=== PATIENT | female | born 1980 | race Caucasian/White ===

== ENCOUNTER → 2016-08-06 | Outpatient (CLI) | payer OTHER ==
--- NOTE | 2016-08-06 17:46 | US ---
Dear Dr. Potts, Thank you for sending your patient, Miguel Daniels, to us for an US and consultation to assess f etal anatomy. As you know, the patient is a 35 y.o. G2, P0010 at 20 weeks and 2 days with an EDC of based on LMP at 8 week ultrasound. Her is complicated by AMA and family history of c ongenital cardiac disease. Stephanie's past medical and surgical history are unremarkable. Her OB history is significant for a 1st trimester TAB (D&C) in 2007. Her family history is remarkable for her brother dying of complications secondary to left hypoplastic heart in digital marketing assistant. The patient also reports that her maternal gr andmother's sister shortly after for unknown reasons. She denies any personal or family hi story of bicuspid aortic valves. However, the patient herself has never had an echocardiogram. Genetic Screening: NIPT reassuring (46 XY), AFP neg The patient denies any uterine contractions, vaginal bleeding, or loss of fluid. Today, she is withou t complaints. US FINDINGS: Number of fetuses: 1 Placental location: Anterior, No previa Placental Cord Insertion: Central presentation: Breech Cervix: 3.6 cm, transabdominally MVP: 4.4 cm The adnexa were evaluated. No pathology was seen. Right ovary: Normal Left ovary: Normal heart rate: 153 bpm Measurements: Biparietal diameter: 51 mm, 21 weeks 3 days Head circumference: 184 mm, 20 weeks 6 days Abdominal circumference: 149 mm, 20 weeks 1 days Femur length: 34 mm, 20 weeks 4 days Humerus length: 31 mm, 20 weeks 3 days Transcerebellar diameter: 22 mm, 20 weeks 3 days Average ultrasound age: 20 weeks 6 days Estimated weight: 350 g weight percentile: 51% ANATOMY Supratentorial brain: Normal Cerebral lateral ventricle: 4.9 mm Posterior fossa: Normal Cisterna magna: 3.6 mm Nuchal fold: 4.4 Lip: Normal Profile: Normal Alveolar Ridge: Appears intact Spine: Grossly suboptimal due to position Heart: -- 4 Chamber: Normal -- Intraventricular septum: Appears intact by Color and Spectral US -- Right Outflow Tract: Normal -- Left Outflow Tract: Normal -- 3 Vessel View: Normal Diaphragm: Appears intact Stomach: Normal Abdominal Umbilical Cord Insertion: Normal Right kidney: Normal Left kidney: Normal Bladder: Normal Number of cord vessels: 3 Upper extremities: -- Right Arm: Normal -- Right Hand: Suboptimal -- Left Arm: Normal -- Left Hand: Suboptimal Lower extremities: -- Right Leg: Normal -- Right Foot: Suboptimal -- Left Leg: Normal -- Left Foot: Suboptimal Gender: Male IMPRESSION: 1. Anatomy: The fetus measures appropriate for gestational age, measuring a normal weight and percen tile. Visualization of the fetus today reveals no overt structural anomalies. However, the spin e, hands, and feet were not well seen secondary to position. There is evidence of normal amniot ic fluid, and movement was seen during the examination. - US in 4-6 weeks to reevaluate anatomy 2. Genetic Screening: This patient has had reassuring NIPT results this . Today, no markers of aneuploidy were seen. While her screening and US results are reassuring, we reviewed that fe [place] aneuploidy can only be definitively excluded with diagnostic testing via amniocentesis. After thi s discussion, the patient does not wish to proceed with invasive testing at this time. 3. Family History of Congenital Cardiac Disease: Given the diagnosis of hypoplastic left heart in the patient's brother, we reviewed that each will have a 2-3% risk of congenital cardiac disea se. Today, we saw no overt cardiac structural anomalies. We reviewed that left sided heart lesions ca n develop later in , but that today's US findings are reassuring. - echocardiogram with Pediatric Cardiology at 22-24 weeks - US at 30-32 weeks to assess for late developing cardiac lesions Thank you again for sending this patient to see us today. Approximately 30 minutes of a total visit t karina of 18 minutes were spent with this patient today in direct face to face counseling regarding toda y's US findings and the above recommendations. Please feel free to contact me with any questions at . Jessica Schrader MD Maternal- Medicine
--- NOTE | 2016-08-07 18:34 | US ---
Ultrasound Obstetric second trimester, greater than 14 weeks Indication: anatomy evaluation. Family history of congenital heart disease. The estimated gest ational age by LMP is 20 weeks and 2 days yielding an EDC of December 22, 2016. Comparison: None. Findings: Number: 1 Presentation: Breech Placental Location: Anterior without previa Cervix: 3.6 cm MVP: 4.4 cm Heart Rate: 153 bpm. Right ovary measures 3 x 1.2 x 2.5 cm. Left ovary measures 1.8 x 1.8 cm. Biometry: Biparietal Diameter: 50.82 mm 21 weeks, 3 days Head Circumference: 184.07 mm 20 weeks, 6 days Abdominal Circumference: 148.68 mm 20 weeks, 1 days Femur Length: 33.47 mm 20 weeks, 4 days Humerus Length: 31.22 mm 20 weeks, 3 days Transcerebellar Diameter: 21.62 mm 20 weeks, 3 days HC/AC: 1.24 (1.09-1.26) FL/BPD: 66% FL/AC: 23% Average Ultrasound Age: 20 weeks, 6 days EDC Based on Today's Average Ultrasound Age: December 18, 2016 Estimated weight is 350 gms +/- 51 gms. The estimated weight is at the 51 % based on previous dating. ANATOMY SURVEY: Supratentorial Brain: Normal Posterior Fossa: Normal Spine: Suboptimal Nuchal fold: Normal Nose and Lips: Normal Facial Profile: Normal Heart: Four chamber heart. 153 bpm. Intact intraventricular septum. Cardiac Outflow Tracts: Normal Stomach: Normal Umbilical Cord Insertion: Normal Kidneys: Normal, no pyelectasis Bladder: Normal Number of Cord Vessels: Three Upper Extremities: Suboptimal Lower Extremities: Suboptimal. Impression: 1. [place] in breech presentation. 2. Size concordant with dates. 3. No overt anomalies detected. Suboptimal spine and extremities. Recommend follow-up anatomy scan in 4-6 weeks. 4[address] Please see Dr. Jessica Schrader's consult and recommendations.
== END ==
LOC: FIMAGING 12:10
PROVIDERS: ATTEND Obstetrics & Gynecology
DX: O09.521 Supervision of elderly multigravida, first trimester (principal); Z3A.14 14 weeks gestation of pregnancy

== ENCOUNTER → 2016-09-03 | Outpatient (CLI) | payer OTHER | LOC: FIMAGING 10:45 | PROVIDERS: ATTEND Obstetrics & Gynecology | DX: O09.522 Supervision of elderly multigravida, second trimester (principal); Z82.79 Family history of other congenital malformations, deformations and chromosomal abnormalities; Z3A.24 24 weeks gestation of pregnancy ==

== ENCOUNTER → 2016-09-30 | Outpatient (CLI) | payer OTHER | LOC: FIMAGING 12:22 | PROVIDERS: ATTEND Obstetrics & Gynecology | DX: O09.523 Supervision of elderly multigravida, third trimester (principal); Z82.79 Family history of other congenital malformations, deformations and chromosomal abnormalities; Z3A.28 28 weeks gestation of pregnancy ==